=== PATIENT | male | born 1990 | race Two or more races ===

== ENCOUNTER 2024-03-28 09:04 | Emergency (ER) | payer BC ==
[~2024-03-28] VITALS: Ht 170.2 cm; Wt 74.8 kg
[2024-03-28] MEDS: IV NS 0.9% 1,000 ML BAG IV ONE (10:18)
[2024-03-28 10:19] LABS: BASOPHILS % (AUTO) 0.6 % (0.0-2.0); EOSINOPHILS # (AUTO) 0.1 K/uL (0.0-0.7); EOSINOPHILS % (AUTO) 3.6 % (0.0-6.0); HEMATOCRIT 42 % (39-51); HEMOGLOBIN 14.4 g/dL (13.5-17.5); LYMPHOCYTES # (AUTO) 0.9 K/uL (0.8-4.8); LYMPHOCYTES % (AUTO) 24.1 % (20.0-44.0); MEAN CORPUSCULAR HEMOGLOBIN 30 PG (26.0-33.0); MEAN CORPUSCULAR HGB CONC 34 g/dl (31.0-36.0); MEAN CORPUSCULAR VOLUME 87 fL (80-96); MONOCYTES # (AUTO) 0.3 K/uL (0.1-1.30); MONOCYTES % (AUTO) 7.9 % (2.0-12.0); NEUTROPHILS # (AUTO) 2.3 K/uL (1.8-8.9); NEUTROPHILS % (AUTO) 63.8 % (43.0-81.0); PLATELET COUNT (AUTO) 230 K/uL (150-450); RED BLOOD CELL COUNT(AUTO) 4.85 MIL/uL (4.5-6.0); RED CELL DISTRIBUTION WIDTH 12.8 % (11.5-15.0); WHITE BLOOD COUNT (AUTO) 3.6 K/uL (4.3-11.0)
[2024-03-28 10:25] LABS: CALCIUM, SERUM 9.4 mg/dL (8.5-10.1); CREATININE 1.1 mg/dL (0.6-1.3); POTASSIUM 4.8 mmol/L (3.5-5.1)
[2024-03-28 11:16] VITALS: BP 116/64; TEMP 97.9; O2SAT 99
== END 2024-03-28 11:16 | disposition home or self-care (01) ==
LOC: ER 09:40
DX: R42 Dizziness and giddiness (principal); R51.9 Headache, unspecified
CPT/HCPCS: 99284; 96360; 93005; 85025; 80048; 36415; J7030

== ENCOUNTER 2024-05-27 09:07 | Emergency (ER) | payer BC ==
[~2024-05-27] VITALS: Ht 177.8 cm; Wt 74.8 kg
[2024-05-27] MEDS ORDERED: ONDANSETRON HCL/PF 4 MG/2 ML VIAL ONE (10:06)
[2024-05-27] MEDS ORDERED: MECLIZINE HCL 25 MG TABLET ONE (10:06)
[2024-05-27] MEDS ORDERED: MORPHINE SULFATE INJ 4 MG/ML DISP.SYRIN ONE (10:06)
[2024-05-27] MEDS: MECLIZINE HCL 12.5 MG TABLET PO ONE (10:07)
[2024-05-27] MEDS: MORPHINE SULFATE INJ 2 MG/ML DISP.SYRIN IV ONE (10:07)
[2024-05-27] MEDS: IV NS 0.9% 1,000 ML BAG IV ONE (10:07)
[2024-05-27] MEDS: ONDANSETRON HCL/PF 4 MG/2 ML VIAL IVP ONE (10:07)
[2024-05-27 10:33] LABS: ALBUMIN 3.3 g/dL (3.4-5.0); BILIRUBIN,DIRECT 0.1 mg/dL (0.0-0.2); BILIRUBIN,TOTAL 0.3 mg/dL (0.2-1.0); CALCIUM, SERUM 9.1 mg/dL (8.5-10.1); CREATININE 0.9 mg/dL (0.6-1.3); POTASSIUM 4.3 mmol/L (3.5-5.1); TOTAL PROTEIN, SERUM 7.4 g/dL (6.4-8.2)
[2024-05-27 10:37] LABS: INR 1.07 (0.91-1.10); PARTIAL THROMBOPLASTIN TIME 31.4 SEC (24.3-34.3); PROTHROMBIN TIME 11.3 SECS (9.2-11.1)
[2024-05-27 11:47] LABS: BASOPHILS # (AUTO) 0.1 K/uL (0.0-0.2); EOSINOPHILS # (AUTO) 0.5 K/uL (0.0-0.7); EOSINOPHILS % (AUTO) 7.9 % (0.0-6.0); HEMATOCRIT 38 % (39-51); HEMOGLOBIN 12.9 g/dL (13.5-17.5); LYMPHOCYTES # (AUTO) 0.8 K/uL (0.8-4.8); LYMPHOCYTES % (AUTO) 11.7 % (20.0-44.0); MEAN CORPUSCULAR HEMOGLOBIN 30 PG (26.0-33.0); MEAN CORPUSCULAR HGB CONC 34 g/dl (31.0-36.0); MEAN CORPUSCULAR VOLUME 88 fL (80-96); MONOCYTES # (AUTO) 0.5 K/uL (0.1-1.30); NEUTROPHILS # (AUTO) 4.9 K/uL (1.8-8.9); NEUTROPHILS % (AUTO) 72.4 % (43.0-81.0); PLATELET COUNT (AUTO) 390 K/uL (150-450); RED BLOOD CELL COUNT(AUTO) 4.37 MIL/uL (4.5-6.0); RED CELL DISTRIBUTION WIDTH 12.4 % (11.5-15.0); WHITE BLOOD COUNT (AUTO) 6.8 K/uL (4.3-11.0)
[2024-05-27] MEDS ORDERED: IBUP-1953 PO (13:07)
[2024-05-27] MEDS ORDERED: AMOX-430 PO (13:07)
[2024-05-27 13:27] VITALS: BP 123/81; TEMP 98.2; O2SAT 99
== END 2024-05-27 13:28 | disposition home or self-care (01) ==
LOC: ER 09:07
DX: J18.9 Pneumonia, unspecified organism (principal); M79.10 Myalgia, unspecified site; Z20.822 Contact with and (suspected) exposure to COVID-19
CPT/HCPCS: 99285; 70498; 96374; 71045; 96361; 96375; 87426; 93005; 70496; 85025; 80048; 80076; 36415; 85730; J8597; J2270; J2405; J7030; J7050; Q9967; 70450-TC